=== PATIENT | female | born 1980 | race Caucasian/White ===

== ENCOUNTER 2022-08-05 22:42 | Emergency (ER) | payer OTHER ==
[~2022-08-05 22:42] MED LIST: Iopamidol 370 76% 100 ML VIAL ONE
[2022-08-05] MEDS ORDERED: Ondansetron PF 4 MG/2 ML Vial ONE (23:05)
[2022-08-05] MEDS ORDERED: Sodium Chloride 0.9% 1,000 ML ONE (23:05)
[2022-08-05 23:28] LABS: #Basophils 0.1 thou/uL (0.0-0.2); #Eosinphils 0.1 thou/uL (0.0-0.7); #Lymphocytes 1.7 thou/uL (1.20-3.40); #Monocytes 0.6 thou/uL (0.11-0.59); #Neutrophils 10.1 thou/uL (1.40-6.50); %Basophils 0.9 % (0.0-1.0); %Eosinophils 0.5 % (0.0-10.0); %Lymphocytes 13.6 % (21.0-51.0); %Monocytes 4.9 % (0.0-10.0); %Neutrophils 80.1 % (42.0-75.0); Hemoglobin 14.5 g/dL (12.0-16.0); Mean Corpuscular HGB CONC 34.8 g/dL (32.0-36.0); Mean Corpuscular Hemoglobin 29.9 pg (27.0-31.0); Mean Platelet Volume 6.4 fL (7.4-10.4); Platelet Count 390 10x3/uL (130-400); Red Blood Cell (RBC) Count 4.84 mill/uL (4.20-5.40); White Blood Cell (WBC) Count 12.7 10x3/uL (4.8-10.8)
[2022-08-05 23:37] LABS: BHCG - Serum Negative (NEGATIVE); Pregs Control Background? CLEAR/WHITE (CLR/WHITE); Pregs Control Bar Appear? YES (CONTROL BAR)
[2022-08-05] MEDS ORDERED: diphenhydrAMINE 50 MG/ML VIAL ONE (23:37)
[2022-08-05] MEDS ORDERED: Metoclopramide HCl 10 MG/2 ML VIAL ONE (23:37)
[2022-08-05] MEDS ORDERED: Ketorolac Tromethamine 30 MG/ML VIAL ONE (23:37)
[2022-08-05 23:49] LABS: ALT (SGPT) 18 U/L (8-55); AST (SGOT) 14 U/L (5-34); Albumin 4.5 g/dL (3.5-5.0); Alkaline Phosphatase 52 U/L (40-110); Anion Gap 18 mmol/L (10-20); BUN (Urea Nitrogen) 14 mg/dL (7.0-18.7); Bilirubin, Total 0.6 mg/dL (0.2-1.2); Calc. Creatinine Clearance 0 mL/min (70-130); Calcium 9.7 mg/dL (7.8-10.44); Carbon Dioxide 18 mmol/L (22-29); Chloride 111 mmol/L (98-107); Estimated GFR 68; Globulin 2.7 g/dL (2.4-3.5); Glucose 144 mg/dL (70-105); Lipase 60 U/L (8-78); Magnesium 2.6 mg/dL (1.6-2.6); Potassium 3.8 mmol/L (3.5-5.1); Protein, Total 7.2 g/dL (6.0-8.3); Sodium 143 mmol/L (136-145)
[2022-08-05 23:50] LABS: Acetaminophen Less than 10.0 mcg/mL (10.0-30.0); Alcohol Less than 10 mg/dL (Less than 10); Salicylate Less than 8.0 mg/dL (15.0-30.0)
[2022-08-06] MEDS ORDERED: Sodium Chloride 0.9% 1,000 ML ONE (00:48)
[2022-08-06] MEDS ORDERED: Ondansetron PF 4 MG/2 ML Vial ONE (00:52)
[2022-08-06] MEDS ORDERED: Naloxone HCl 0.4 mg/ml Vial ONE (01:22)
[2022-08-06] MEDS ORDERED: Dicyclomine 20 MG/2 ML VIAL ONE (02:03)
[2022-08-06] MEDS ORDERED: Haloperidol Lactate 5 MG/ML VIAL ONE (02:34)
[2022-08-06] MEDS ORDERED: diphenhydrAMINE 50 MG/ML VIAL ONE ×2 (02:35→05:57)
[2022-08-06 02:45] LABS: Amphetamine Not Detected (NotDetected); Barbiturates Screen Not Detected (NotDetected); Benzodiazepine Screen Not Detected (NotDetected); Cocaine Metabolite Screen Not Detected (NotDetected); Medtox Control Line Valid? VALID (VALID); Methadone Not Detected (NotDetected); Methamphetamine Not Detected (NotDetected); Opiate Screen Not Detected (NotDetected); Oxycodone Screen Not Detected (NotDetected); Phencyclidine (PCP) Not Detected (NotDetected); THC/Cannabinoid Screen Not Detected (NotDetected); Tricyclic Screen Not Detected (NotDetected)
[2022-08-06] MEDS ORDERED: Diazepam 10 MG/2 ML SYRINGE ONE (04:23)
[2022-08-06] MEDS ORDERED: Prochlorperazine 10 MG/2 ML VIAL ONE ×2 (05:57→08:59)
[2022-08-06] MEDS ORDERED: Morphine 2 MG/ML VIAL ONE (06:05)
[2022-08-06] MEDS ORDERED: Famotidine/PF 20 mg/2ml Vial ONE (08:58)
[2022-08-06] MEDS ORDERED: Mag-Al Plus 1200 MG/1200 MG/120 MG/30 ML UDCUP ONE (08:58)
== END 2022-08-06 09:20 | disposition home or self-care (01) ==
LOC: MADERS 22:42
DX: R11.2 Nausea with vomiting, unspecified (principal); R10.10 Upper abdominal pain, unspecified; K21.9 Gastro-esophageal reflux disease without esophagitis; Z79.899 Other long term (current) drug therapy
CPT/HCPCS: 74177; 80053; 80306; 80307; 83690; 83735; 84703; 85025; 93005; 96361; 96372; 96374; 96375; 96376; J0780; J1200; J1630; J1885; J2272; J2310; J2405; J2765; J3360; J7050; Q9967; S0028